=== PATIENT | female | born 1960 | race African-American/Black ===

== ENCOUNTER → 2016-09-29 | Outpatient (CLI) | payer OTHER ==
[~2016-09-29] MED LIST: DIOVAN HCT 1601 EAC1 PO; DIOVAN40 MG OR; ENJUVIA0.3 MG PO; FISHOIL OR; PERCOCET 10-321 EACH PO; THERA-M CAPLET1 EACH OR; ZOCOR 20 MG TAB20 M1 PO
== END ==
LOC: MRI 09:52
DX: M47.896 Other spondylosis, lumbar region (principal)

== ENCOUNTER → 2016-12-31 | Outpatient (CLI) | payer OTHER | LOC: RAD 03:37 | DX: Z12.31 Encounter for screening mammogram for malignant neoplasm of breast (principal) ==

== ENCOUNTER → 2017-03-04 | Outpatient (CLI) | payer OTHER ==
--- NOTE | ~2017-03-04 | EXE ---
[facility] Octavio [place]unte[place] [address] STRESS ECHOCARDIOGRAM Name: RUDY SHARP Room #: REG [facility]#: [id number] Admission: 03/04/17 Attend Phys: Mike Burnette Discharge: Date of : 56 Date of Service: 03/07/17 0038 Report #: [id number] THIS REPORT FOR: //name// APPROVED REPORT Exam: Stress Echocardiogram Indication: Chest pain Patient Location: Out-Patient Stress Nurse: Narda Tracy RN Ht: 5 ft 7 in HR: 82 bpm BP: 155/106 mmHg Rhythm: NSR Medical History Medications: Listed on wrksht Allergies: No known drug allergies Cardiac Risk Factors: HTN Procedure The patient underwent an Exercise Stress Test using the Alistair Protocol. Blood pressure, heart rate, and EKG were monitored. An Echocardiogram was performed by electrocardiograph technician in four stages in quad fashion. At peak stress, four selected images were obtained and placed side by side with resting images for comparison. Stress Test Details Stress Test: Exercise stress testing was performed using a Alistair protocol. HR Resting HR: 85 bpm Max Heart Rate (APMHR): 162 bpm Max HR Achieved: 173 bpm Target HR (85% APMHR): 137 bpm % of APMHR: 106 Recovery HR: 101 bpm BP Resting BP: 155/106 mmHg Max BP: 184/96 mmHg Recovery BP: 164/100 mmHg ECG Clinical Reason for Termination: Moderate+ fatigue Stress Symptoms: Leg Fatigue, Dyspnea [facility] [address] [place] [address] STRESS ECHOCARDIOGRAM Name: RUDY SHARP Room #: REG [facility]#: [id number] Admission: 03/04/17 Attend Phys: Mike Burnette Discharge: Date of : 56 Date of Service: 03/07/1737 Report #: [id number] Exercise duration: 9 min 24 sec Highest Stage Achieved: Stage 4: 4.2 mph at 16% grade. Exercise capacity: 11.5 METs Stress ECG Conclusion 1. SUBJECTIVELY NEGATIVE FOR ISCHEMIA 2. ELECTROCARDIOGRAPHICLLY NEGATIVE FOR ISCHEMIA Pre-Stress Echo The resting Echocardiogram showed normal left ventricular contractility with an estimated Ejection Fraction of about 55-60%. Mild MR, TR. Post-Stress Echo The stress Echocardiogram showed normal left ventricular contractility with an estimated Ejection Fraction of about 65-70%. Normal augmentation of wall motion in all segments on post stress images. Conclusion 1. LOW RISK STUDY Other Information Study Quality: Good <Conclusion> 1. LOW RISK STUDY <ELECTRONICALLY SIGNED> By: Mike Philip MD 03/07/17 003 0038 Mike Philip MD /INF
== END ==
LOC: CV 09:01
DX: R07.9 Chest pain, unspecified (principal)

== ENCOUNTER → 2018-01-27 | Outpatient (CLI) | payer OTHER | LOC: MRI 07:02 | DX: D17.21 Benign lipomatous neoplasm of skin and subcutaneous tissue of right arm (principal); M25.841 Other specified joint disorders, right hand ==

== ENCOUNTER → 2019-01-12 | Outpatient (CLI) | payer OTHER | LOC: RAD 14:14 | DX: Z12.31 Encounter for screening mammogram for malignant neoplasm of breast (principal) ==

== ENCOUNTER → 2019-10-10 | Outpatient (CLI) | payer OTHER | LOC: MRI 12:36 | PROVIDERS: ATTEND Family Medicine | DX: M51.27 Other intervertebral disc displacement, lumbosacral region (principal); M48.07 Spinal stenosis, lumbosacral region; M47.816 Spondylosis without myelopathy or radiculopathy, lumbar region ==